=== PATIENT | female | born 1985 | race Caucasian/White ===

== ENCOUNTER 2023-07-25 19:27 | Emergency (ER) | payer OTHER ==
[2023-07-25] MEDS ORDERED: Diphtheria,Pertussis(Acell),Tetanus Vaccine 0.5 ML Syringe IM ONE (20:32)
== END 2023-07-25 20:45 | disposition home or self-care (01) ==
LOC: MW.ED 19:27
DX: S20.111A Abrasion of breast, right breast, initial encounter (principal); Z23 Encounter for immunization; W54.0XXA Bitten by dog, initial encounter
CPT/HCPCS: 90471; 90715; 99281; 99283-25